=== PATIENT | male | born 1980 | race African-American/Black ===

== ENCOUNTER → 2017-10-27 | Outpatient (CLI) | payer OTHER ==
[2017-10-27 13:50] LABS: ALKALINE PHOSPHATASE 93 U/L (45-117); ALT (GPT) 28 U/L (12-78); AST (GOT) 21 U/L (15-37); BLOOD UREA NITROGEN 15 MG/DL (7-18); CALCIUM 8.4 MG/DL (8.5-10.1); CHLORIDE 110 MEQ/L (98-107); CHOLESTEROL 106 MG/DL (120-200); CHOLESTEROL/ HDL RATIO 1.82 RATIO; CREATININE 1.37 MG/DL (0.60-1.30); GLOMERULAR FILTRATION RATE 70 ML/MIN (>89); LDL CHOLESTEROL 37 MG/DL (0-99); SODIUM (NA) 141 MEQ/L (136-145); TOTAL BILIRUBIN ADULT 0.2 MG/DL (0.2-1.0); TOTAL PROTEIN 7.9 GM/DL (6.4-8.2); TRIGLYCERIDES 54 MG/DL (42-150)
[2017-10-27 13:57] LABS: GLUCOSE,FASTING 40 MG/DL (74-99)
[2017-10-27 17:54] LABS: HEMOGLOBIN A1C 5.7 % (4.3-6.0)
== END ==
LOC: ELAB 09:20
PROVIDERS: ATTEND Family Medicine
DX: R19.7 Diarrhea, unspecified (principal); E11.9 Type 2 diabetes mellitus without complications
CPT/HCPCS: 36415; 80053; 80061; 83036; 85018